=== PATIENT | male | born 1995 | race American Indian/Alaskan Native ===

== ENCOUNTER 2021-03-11 03:38 | Emergency (ER) | payer OTHER ==
[2021-03-11] MEDS ORDERED: FAMOTIDINE 20 MG TAB PO ONE (05:33)
[2021-03-11] MEDS ORDERED: ONDANSETRON 4 MG ODT TAB PO ONE (05:33)
--- NOTE | 2021-03-11 05:59 | XRay Report ---
CHEST 1 VIEW 03/11/2021 4:54 AM INDICATION / CLINICAL INFORMATION: Pain. COMPARISON: None available. FINDINGS: SUPPORT DEVICES: None. HEART / MEDIASTINUM: No significant abnormality. LUNGS / PLEURA: No significant pulmonary or pleural abnormality. No pneumothorax. ADDITIONAL FINDINGS: No significant additional findings. IMPRESSION: 1. No acute findings. Signer Name: Gianni Weaver DO Signed: 03/11/2021 5:54 AM Workstation Name: [id number]
[2021-03-11 06:06] LABS: Basophils % (Auto) 0.2 % (0.0-1.8); Eosinophils % (Auto) 0.6 % (0.0-4.3); Hematocrit 49.6 % (35.5-45.6); Hemoglobin 16.1 gm/dl (11.8-15.2); Lymphocytes # (Auto) 0.4 K/mm3 (1.2-5.4); Lymphocytes % (Auto) 6.1 % (13.4-35.0); Mean Corpuscular HGB Conc 33 % (32-34); Mean Corpuscular Volume 91 fl (84-94); Monocytes # (Auto) 0.6 K/mm3 (0.0-0.8); Monocytes % (Auto) 10.8 % (0.0-7.3); Platelet Count 399 K/mm3 (140-440); Red Blood Count 5.47 M/mm3 (3.65-5.03); Red Cell Distribution Width 14.6 % (13.2-15.2)
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
[2021-03-11 06:28] LABS: Alanine Aminotransferase 27 units/L (7-56); Albumin 4.2 g/dL (3.9-5); BUN/Creatinine Ratio 12; Blood Urea Nitrogen 14 mg/dL (9-20); Calcium 9.2 mg/dL (8.4-10.2); Hemolysis Index 6
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
[2021-03-11 08:27] VITALS: BP 130/77
[2021-03-11] MEDS ORDERED: ASPIRIN 325 MG TAB PO SCH (10:00)
--- NOTE | 2021-03-11 11:53 | Electrocardiograph Report ---
[facility] Test Date: 2021-03-11 Test Time: 05:36:35 Pat Name: SHEILA WALTERS Department: ED Room: Gender: M [place]: INDRA : 1995 Requested By: CECE ARAGON Order Number: [id number] Reading MD: Choco Flores Measurements Intervals [place] Rate: 78 P: 48 WY: 148 QRS: 102 QRSD: 86 T: 14 QT: 331 QTc: 377 Interpretive Statements Sinus rhythm, Right axis deviation. Borderline ST elevation, anterior leads No previous ECG available for comparison Electronically Signed On 03-11-2021 11:53:19 EST by Choco Flores
== END 2021-03-11 08:27 | disposition home or self-care (01) ==
LOC: ED 03:38
DX: R07.89 Other chest pain (principal); R10.10 Upper abdominal pain, unspecified; Z90.49 Acquired absence of other specified parts of digestive tract; Z98.890 Other specified postprocedural states
CPT/HCPCS: 36415; 71045; 74018; 80053; 83690; 84484; 85025; 93005; 99284; J3490; Q0162